=== PATIENT | female | born 1980 | race Caucasian/White ===

== ENCOUNTER 2018-10-28 14:18 | Emergency (ER) | payer SELFPAY ==
[~2018-10-28] VITALS: Ht 165.1 cm; Wt 72.7 kg
[2018-10-28] MEDS ORDERED: IBUPROFEN 600 MG TAB PO ONE (15:15)
[2018-10-28 16:19] VITALS: BP 119/72
[2018-10-28] MEDS ORDERED: NORCOTAB PO (16:30)
--- NOTE | 2018-10-29 07:38 | REP ---
LEFT THIRD DIGIT: Four views of the left third digit performed. There is a nondisplaced fracture of the distal phalanx. I see no other evidence of acute fracture or dislocation. Electronically Signed by Ankit Sethi MD 10/29/2018 10:23 A
--- NOTE | 2018-10-29 07:40 | REP ---
RIGHT LOWER LEG, AP AND LATERAL: AP and lateral views of the right lower leg performed. There is an old healed fracture of the proximal fibula. No acute fracture, dislocation or intrinsic bone disease is seen. Electronically Signed by Ankit Sethi MD 10/29/2018 10:24 A
--- NOTE | 2018-10-29 07:40 | REP ---
RIGHT KNEE SERIES: Five views of the right knee performed. There is an old healed fracture of the proximal fibula. I see no acute fracture or dislocation. Joint spaces are unremarkable. Electronically Signed by Ankit Sethi MD 10/29/2018 10:24 A
== END 2018-10-28 16:44 | disposition home or self-care (01) ==
LOC: M ED 14:18
DX: S62.665A Nondisplaced fracture of distal phalanx of left ring finger, initial encounter for closed fracture (principal); W17.89XA Other fall from one level to another, initial encounter; Y92.018 Other place in single-family (private) house as the place of occurrence of the external cause; Z88.1 Allergy status to other antibiotic agents; Z88.2 Allergy status to sulfonamides; Z88.8 Allergy status to other drugs, medicaments and biological substances

== ENCOUNTER → 2019-01-04 | Outpatient (CLI) | payer OTHER ==
[~2019-01-04] MED LIST: HYDR-3715 PO
--- NOTE | 2019-01-04 13:28 | REP ---
Clinical: Upper abdominal pain. Technique: Real time gastelum scale ultrasound examination using curved array transducer. Findings: Liver and visualized pancreas are normal in contour, size, and echogenicity without focal hepatic or pancreatic lesions identified. There appears to be a 9.7 x 2.3 x 4.9 cm ovoid complex cystic lesion in the lesser sac between pancreas and the stomach which may represent pseudocyst. The gallbladder demonstrates mobile gallstone without wall thickening or pericholecystic fluid. No biliary ductal dilatation is appreciated and the common bile duct measures 4.5 mm diameter. The right kidney is normal in reniform shape and echogenicity without hydronephrosis and measures 10.2 x 5.7 x 5.2 cm. No ascites. Impression: 1. Septated cystic structure in the lesser sac possibly pancreatic pseudocyst. Correlation with contrast enhanced CT of the abdomen may be warranted. 2. Cholelithiasis. Electronically Signed by Fabian Bryson MD 01/04/2019 01:19 P
== END ==
LOC: M RAD 09:05
PROVIDERS: ATTEND Family Medicine
DX: R10.10 Upper abdominal pain, unspecified (principal); K80.00 Calculus of gallbladder with acute cholecystitis without obstruction

== ENCOUNTER → 2019-01-12 | Outpatient (REF) | payer OTHER ==
[2019-01-12 13:39] LABS: BASO % 0.7 % (0.0-1.0); EOS # 0.1 10^3/uL (0.0-0.50); EOS % 2.6 % (0.0-3.0); HEMATOCRIT 41.1 % (36.0-47.0); HEMOGLOBIN 13.8 g/dl (12.0-15.5); LYMPH % 37.8 % (24.0-44.0); MEAN CORPUSCULAR HEMOGLOBIN 31.2 pg (27.0-33.0); MEAN CORPUSCULAR HGB CONC 33.6 g/dl (32.0-36.5); MONO # 0.4 10^3/uL (0.0-0.8); MONO % 6.7 % (0.0-5.0); NEUTROPHILS # 2.8 10^3/uL (1.8-7.7); NEUTROPHILS % 51.8 % (36.0-66.0); PLATELET COUNT, AUTOMATED 317 10^3/uL (150-450); RED BLOOD COUNT 4.42 10^6/uL (4.00-5.40); WHITE BLOOD COUNT 5.4 10^3/uL (4.0-10.0)
[2019-01-12 13:47] LABS: APPEARANCE, URINE CLEAR (CLEAR); BACTERIA, URINE AUTO NEGATIVE (NEGATIVE); BILIRUBIN, URINE AUTO NEGATIVE (NEGATIVE); BLOOD, URINE BLOOD 2+ (NEGATIVE); COLOR, URINE YELLOW (YELLOW); GLUCOSE, URINE (UA) AUTO NEGATIVE (NEGATIVE); KETONE, URINE AUTO NEGATIVE (NEGATIVE); LEUKOCYTE ESTERASE, URINE AUTO NEGATIVE (NEGATIVE); NITRITE, URINE AUTO NEGATIVE (NEGATIVE); PROTEIN, URINE AUTO NEGATIVE (NEGATIVE); RBC, URINE AUTO 0 /HPF (0-3); SQUAMOUS EPITHELIAL CELL UR AU 2 /HPF (0-6); UROBILINOGEN, URINE AUTO 0.2 mg/dL (0.0-2.0); WBC, URINE AUTO 0 /HPF (0-3)
[2019-01-12 13:50] LABS: INR 1.02; PROTHROMBIN TIME 13.5 SECONDS (12.1-14.4)
[2019-01-12 13:51] LABS: PARTIAL THROMBOPLASTIN TIME 30.1 SECONDS (25.4-37.6)
[2019-01-12 13:54] LABS: ALBUMIN 3.5 GM/DL (3.2-5.2); ALT/SGPT 15 U/L (12-78); BILIRUBIN,TOTAL 0.5 MG/DL (0.2-1.0); BLOOD UREA NITROGEN 15 MG/DL (7-18); CALCIUM LEVEL 8.3 MG/DL (8.5-10.1); CARBON DIOXIDE LEVEL 27 MEQ/L (21-32); CHLORIDE LEVEL 110 MEQ/L (98-107); CHOLESTEROL LEVEL 177 MG/DL (<200); FREE T4 0.91 NG/DL (0.76-1.46); GLOMERULAR FILTRATION RATE > 60.0 (>58); GLUCOSE, FASTING 85 MG/DL (70-100); HDL CHOLESTEROL 60 MG/DL (>40); LDL CHOLESTEROL 99 MG/DL (<100); NON-HDL-C 117 MG/DL; POTASSIUM SERUM 4.5 MEQ/L (3.5-5.1); SODIUM LEVEL 141 MEQ/L (136-145); TRIGLYCERIDES LEVEL 91 MG/DL (<150)
[2019-01-12 13:56] LABS: TOTAL 25(OH) VITAMIN D 21.4 NG/ML (30.0-100.0)
[2019-01-12 14:51] LABS: HEMOGLOBIN A1c 5.2 %
[2019-01-14 00:06] LABS: Lyme Disease IgG/IgM Antibodie <0.91 ISR (0.00-0.90); Lyme Disease IgM Ab Quantitati <0.80 index (0.00-0.79)
== END ==
LOC: M LAB REF 12:16
PROVIDERS: ATTEND Family Medicine
DX: R10.823 Right lower quadrant rebound abdominal tenderness (principal); K80.20 Calculus of gallbladder without cholecystitis without obstruction

== ENCOUNTER → 2019-01-23 | Outpatient (CLI) | payer MEDICAID, OTHER ==
[~2019-01-23] MED LIST changes: +GASTROGRAFIN SOLUTION 30ML (Q9963) As Ordered ONE; +ISOVUE-370 76% 100ML VIAL (Q9967) As Ordered ONE
--- NOTE | 2019-01-23 16:12 | REP ---
CT of the abdomen pelvis without IV contrast, with bowel contrast for right lower quadrant pain and rebound: There are no comparisons. The visualized lung vines are unremarkable. The unenhanced hepatic parenchyma is unremarkable. There is a 1.6 a centimeter gallbladder calculus with rim calcification. The gallbladder is otherwise unremarkable. There is no biliary duct dilatation. There is a focal fluid collection in the lesser sac anteriorly inferior to the pancreas. This could represent a pseudocyst, mesenteric cyst, enteric cyst or gastric cyst. It measures 6.5 by 4.1 cm. The unenhanced pancreas and spleen are otherwise unremarkable. The adrenals are unremarkable. There are no renal calculi. There is no hydronephrosis. The unenhanced kidneys are unremarkable. The abdominal aorta is unremarkable. There is no retroperitoneal adenopathy or mass. The bowel and mesentery are unremarkable. There is incomplete descent of the cecum. The cecum is located near the hepatic flexure. Pelvis: The uterus and adnexa are unremarkable. The bladder is unremarkable. There is no ascites. There is no adenopathy. Impression: There is a fluid collection in the lesser sac anterior inferior to the pancreas as described. This could represent a mesenteric, enteric or gastric cyst. Pancreatic pseudocyst is also possible. There is no ascites or adenopathy. No mass. No bowel distension or obstruction. Electronically Signed by Ankit Trinidad MD 01/23/2019 04:04 P
== END ==
LOC: M RAD 13:12
PROVIDERS: ATTEND Nurse Practitioner Adult Health
DX: R10.10 Upper abdominal pain, unspecified (principal); R10.823 Right lower quadrant rebound abdominal tenderness
CPT/HCPCS: 74176; Q9963

== ENCOUNTER 2019-03-19 12:23 | Emergency (ER) | payer OTHER ==
[~2019-03-19] VITALS: Ht 165.1 cm; Wt 77.6 kg
[~2019-03-19 12:23] MED LIST changes: -GASTROGRAFIN SOLUTION 30ML (Q9963) As Ordered ONE; -ISOVUE-370 76% 100ML VIAL (Q9967) As Ordered ONE
[2019-03-19] MEDS ORDERED: IBUPROFEN 800 MG TAB PO ONE (14:15)
[2019-03-19 14:27] LABS: HEMATOCRIT 42.8 % (36.0-47.0); HEMOGLOBIN 14.3 g/dl (12.0-15.5); MEAN CORPUSCULAR HEMOGLOBIN 30.8 pg (27.0-33.0); MEAN CORPUSCULAR HGB CONC 33.4 g/dl (32.0-36.5); PLATELET COUNT, AUTOMATED 283 10^3/uL (150-450); RED BLOOD COUNT 4.65 10^6/uL (4.00-5.40); WHITE BLOOD COUNT 8.4 10^3/uL (4.0-10.0)
[2019-03-19 15:13] VITALS: BP 133/77
--- NOTE | 2019-03-19 15:39 | REP ---
REASON: Thumb pain. FINDINGS: No acute fracture or destructive osseous lesion. Electronically Signed by Aric Miller DO 03/19/2019 04:49 P
[2019-04-13] MEDS ORDERED: DULO1CAP5 PO (07:54)
[2019-04-13] MEDS ORDERED: MIRT1TAB PO (07:54)
[2019-04-13] MEDS ORDERED: ABIL1TAB13 PO (07:54)
== END 2019-03-19 15:15 | disposition home or self-care (01) ==
LOC: M ED 12:23
DX: M79.89 Other specified soft tissue disorders (principal); Z79.899 Other long term (current) drug therapy; Z88.2 Allergy status to sulfonamides; Z88.8 Allergy status to other drugs, medicaments and biological substances

== ENCOUNTER → 2019-03-20 | Outpatient (REF) | payer OTHER ==
[2019-03-20 18:07] LABS: APPEARANCE, URINE CLEAR (CLEAR); BACTERIA, URINE AUTO NEGATIVE (NEGATIVE); BILIRUBIN, URINE AUTO NEGATIVE (NEGATIVE); BLOOD, URINE BLOOD NEGATIVE (NEGATIVE); COLOR, URINE STRAW (YELLOW); GLUCOSE, URINE (UA) AUTO NEGATIVE (NEGATIVE); KETONE, URINE AUTO NEGATIVE (NEGATIVE); LEUKOCYTE ESTERASE, URINE AUTO NEGATIVE (NEGATIVE); NITRITE, URINE AUTO NEGATIVE (NEGATIVE); PROTEIN, URINE AUTO NEGATIVE (NEGATIVE); RBC, URINE AUTO 0 /HPF (0-3); SPECIFIC GRAVITY URINE AUTO 1.006 (1.002-1.035); SQUAMOUS EPITHELIAL CELL UR AU 0 /HPF (0-6); UROBILINOGEN, URINE AUTO 0.2 mg/dL (0.0-2.0); WBC, URINE AUTO 1 /HPF (0-3)
== END ==
LOC: M LAB REF 17:02
PROVIDERS: ATTEND Nurse Practitioner Women's Health
DX: Z32.02 Encounter for pregnancy test, result negative (principal)

== ENCOUNTER 2019-03-29 17:25 | Emergency (ER) | payer OTHER ==
[~2019-03-29] VITALS: Ht 165.1 cm; Wt 78.4 kg
[2019-03-29 18:29] LABS: BASO # 0.1 10^3/uL (0.0-0.2); BASO % 0.9 % (0.0-1.0); EOS # 0.2 10^3/uL (0.0-0.50); EOS % 2.2 % (0.0-3.0); HEMATOCRIT 37.6 % (36.0-47.0); HEMOGLOBIN 12.8 g/dl (12.0-15.5); LYMPH # 2.5 10^3/uL (1.5-4.5); LYMPH % 36.5 % (24.0-44.0); MEAN CORPUSCULAR HEMOGLOBIN 31.5 pg (27.0-33.0); MEAN CORPUSCULAR VOLUME 92.6 fl (80.0-96.0); MONO # 0.5 10^3/uL (0.0-0.8); MONO % 7.3 % (0.0-5.0); NEUTROPHILS # 3.6 10^3/uL (1.8-7.7); NEUTROPHILS % 52.8 % (36.0-66.0); PLATELET COUNT, AUTOMATED 312 10^3/uL (150-450); RED BLOOD COUNT 4.06 10^6/uL (4.00-5.40); WHITE BLOOD COUNT 6.8 10^3/uL (4.0-10.0)
[2019-03-29 19:08] LABS: ALBUMIN 3.6 GM/DL (3.2-5.2); ALT/SGPT 16 U/L (12-78); BILIRUBIN,DIRECT 0.1 MG/DL (0.0-0.2); BILIRUBIN,TOTAL 0.4 MG/DL (0.2-1.0); BLOOD UREA NITROGEN 17 MG/DL (7-18); CALCIUM LEVEL 9.2 MG/DL (8.5-10.1); CARBON DIOXIDE LEVEL 27 MEQ/L (21-32); CHLORIDE LEVEL 110 MEQ/L (98-107); CREATININE FOR GFR 0.91 MG/DL (0.55-1.30); GLOMERULAR FILTRATION RATE > 60.0 (>58); GLUCOSE, FASTING 89 MG/DL (70-100); LIPASE 167 U/L (73-393); POTASSIUM SERUM 4.2 MEQ/L (3.5-5.1); SODIUM LEVEL 144 MEQ/L (136-145); TOTAL PROTEIN 6.6 GM/DL (6.4-8.2)
[2019-03-29] MEDS ORDERED: ISOVUE-370 76% 100ML VIAL (Q9967) As Ordered ONE (20:41)
[2019-03-29] MEDS ORDERED: NS 1,000 ML IV ONE (20:45)
[2019-03-29] MEDS ORDERED: MORPHINE 4 MG/ML 1ML VIAL/SYRINGE (J2270) IV ONE (20:45)
[2019-03-29] MEDS ORDERED: ONDANSETRON 4MG/2ML VIAL (J2405) IV ONE (20:45)
--- NOTE | 2019-03-29 21:58 | REPVR ---
EXAM: CT Abdomen and Pelvis With Contrast EXAM DATE/TIME: 03/29/2019 8:45 PM CLINICAL HISTORY: 38 years old, female; Abdominal pain; Generalized; Additional info: Diffuse, severe abd pain, L mid back pain TECHNIQUE: Imaging protocol: Computed tomography images of the abdomen and pelvis with intravenous contrast. Radiation optimization: All CT scans at this facility use at least one of these dose optimization techniques: automated exposure control; mA and/or kV adjustment per patient size (includes targeted exams where dose is matched to clinical indication); or iterative reconstruction. Contrast material: ISOVUE 370; Contrast volume: 100 ml; Contrast route: IV; COMPARISON: CT ABD/PEL W/PO CONTRAST ONLY 01/23/2019 3:07 PM FINDINGS: Liver: Unremarkable. No mass. Gallbladder and bile ducts: There is a rim calcified stone measuring 16 mm within the gallbladder. Generalized gallbladder wall thickening is likely secondary to gallbladder collapse. Correlate clinically. Consider right upper quadrant ultrasound as clinically indicated. The common bile duct has a normal caliber. Pancreas: No pancreatic mass or duct dilatation. Spleen: Unremarkable. No splenomegaly. Adrenals: Normal. No mass. Kidneys and ureters: Unremarkable. No stones. No hydronephrosis. Stomach and bowel: Unremarkable. No obstruction. No mucosal thickening. Appendix: No evidence of appendicitis. Intraperitoneal space: A well-defined cystic mass measuring 6.3 cm x 2.5 cm x 5.1 cm within the lesser sac and anterior and inferior to the pancreas is unchanged compared to the prior examination. Vasculature: Unremarkable. No abdominal aortic aneurysm. Lymph nodes: Slightly prominent nonspecific mesenteric lymph nodes, unchanged. Bladder: Unremarkable as visualized. Reproductive: Unremarkable as visualized. Bones/joints: No acute fracture. Soft tissues: Unremarkable. IMPRESSION: 1. Cholelithiasis with gallbladder wall thickening, likely secondary to gallbladder contraction. Correlate clinically. Consider right upper quadrant ultrasound as clinically indicated. 2. Indeterminate well-defined cystic mass within the lesser sac, anterior and inferior to the pancreas, unchanged compared to the prior examination. Electronically signed by: Charlie Swartz On 03/29/2019 21:58:02 PM
[2019-03-29] MEDS ORDERED: METHOCARBAMOL 1,000 MG/10 ML VIAL (J2800) IV ONE (22:30)
[2019-03-29] MEDS ORDERED: KETOROLAC 30 MG/ML VIAL (J1885) IV ONE (22:30)
[2019-03-29] MEDS ORDERED: LIDOCAINE 5% (LIDODERM) PATCH TD ONE (22:30)
[2019-03-29] MEDS ORDERED: METH1TAB40 PO (23:27)
[2019-03-29] MEDS ORDERED: LIDO1PAD TOP (23:27)
[2019-03-29 23:38] VITALS: BP 115/66
--- NOTE | 2019-03-30 07:25 | ED PDOC ---
Post-Departure Follow-Up mckenna muhammad faxed formal report of ct abd/p for fu Adam Love MD Mar 30, 2019 07:25
[2019-03-30] MEDS ORDERED: **NOTE PATIENT COMMENT** MISC XX SCH (10:30)
[2019-04-13] MEDS ORDERED: DULO1CAP5 PO (07:54)
[2019-04-13] MEDS ORDERED: ABIL1TAB13 PO (07:54)
[2019-04-13] MEDS ORDERED: MIRT1TAB PO (07:54)
== END 2019-03-29 23:46 | disposition home or self-care (01) ==
LOC: M ED 17:25
DX: M54.6 Pain in thoracic spine (principal); R10.12 Left upper quadrant pain; Z79.899 Other long term (current) drug therapy; Z88.1 Allergy status to other antibiotic agents; Z88.2 Allergy status to sulfonamides; Z88.8 Allergy status to other drugs, medicaments and biological substances
CPT/HCPCS: 74177; 80048; 80076; 81001; 83690; 84702; 85025; 96361; 96374; 96375; 99284; J1885; J2270; J2405; J2800; Q9967

== ENCOUNTER 2019-04-19 06:55 | Day surgery (SDC) | payer OTHER ==
[~2019-04-19] VITALS: Ht 165.1 cm; Wt 77.1 kg
[~2019-04-19 06:55] MED LIST changes: +ABIL1TAB13 PO; +DULO1CAP5 PO; +LIDO1PAD TOP; +METH1TAB40 PO; +MIRT1TAB PO
[2019-04-19] MEDS ORDERED: NS 1,000 ML IV ONE (07:00)
[2019-04-19] MEDS ORDERED: propofoL 200 MG/20 ML VIAL As Ordered ONE ×2 (07:59→08:49)
[2019-04-19] MEDS ORDERED: LIDOCAINE 2% INJ 100 MG/5 ML SDV (FOR ANES.) As Ordered ONE (08:00)
[2019-04-19 09:30] VITALS: BP 125/63
--- NOTE | 2019-04-19 09:38 | ROOR ---
Patient Name: Dyan Dumont Procedure Date: 04/19/2019 8:22 AM Date of : 1980 Age: 38 Room: [facility] Gender: Female Note Status: Finalized Procedure: Colonoscopy Indications: Fecal incontinence Providers: Demetri Cummins MD Referring MD: Mikki WELLS NP Requesting Provider: Medicines: Monitored Anesthesia Care Complications: No immediate complications. Procedure: Pre-Anesthesia Assessment: - Prior to the procedure, a History and Physical was performed, and patient medications and allergies were reviewed. The patient is competent. The risks and benefits of the procedure and the sedation options and risks were discussed with the patient. All questions were answered and informed consent was obtained. Patient identification and proposed procedure were verified by the physician, the nurse and the anesthesiologist in the procedure room. Mental Status Examination: alert and oriented. Airway Examination: normal oropharyngeal airway and neck mobility. Respiratory Examination: clear to auscultation. CV Examination: normal. Prophylactic Antibiotics: The patient does not require prophylactic antibiotics. Prior Anticoagulants: The patient has taken no previous anticoagulant or antiplatelet agents. ASA Grade Assessment: II - A patient with mild systemic disease. After reviewing the risks and benefits, the patient was deemed in satisfactory condition to undergo the procedure. The anesthesia plan was to use monitored anesthesia care (MAC). Immediately prior to administration of medications, the patient was re-assessed for adequacy to receive sedatives. The heart rate, respiratory rate, oxygen saturations, blood pressure, adequacy of pulmonary ventilation, and response to care were monitored throughout the procedure. The physical status of the patient was re-assessed after the procedure. The Colonoscope was introduced through the anus and advanced to the terminal ileum, with identification of the appendiceal orifice and IC valve. The colonoscopy was performed without difficulty. The patient tolerated the procedure well. The quality of the bowel preparation was good. The terminal ileum, ileocecal valve, appendiceal orifice, and rectum were photographed. Scope insertion time was 4 minutes. Scope withdrawal time was 8 minutes. The total duration of the procedure was 12 minutes. Findings: Detailed rectal exam done. Normal perianal sensation for light touch and pin-prick. Digital rectal exam - no mass palpable. Noted slightly decreased anal sphincter tone and when asked to squeeze the spincter, there is paradoxial relaxation of sphincter. The terminal ileum appeared normal. A 5 mm polyp was found in the sigmoid colon. The polyp was sessile. The polyp was removed with a jumbo cold forceps. Resection and retrieval were complete. Non-bleeding external and internal hemorrhoids were found during retroflexion. The hemorrhoids were medium-sized. Impression: - The examined portion of the ileum was normal. - One 5 mm polyp in the sigmoid colon, removed with a jumbo cold forceps. Resected and retrieved. - Non-bleeding external and internal hemorrhoids. Recommendation: - Patient has a contact number available for emergencies. The signs and symptoms of potential delayed complications were discussed with the patient. Return to normal activities tomorrow. Written discharge instructions were provided to the patient. - High fiber diet. - Continue present medications. - Perform Kegel exercises daily for atleast 15- 30 minutes. - Await pathology results. - Repeat colonoscopy in 5-10 years for surveillance based on pathology results. - Telephone GI clinic for pathology results in 1 week. - Return to primary care physician. Demetri Cummins MD Demetri Cummins MD 04/19/2019 9:38:12 AM Electronically signed by Demetri Cummins MD Number of Addenda: 0 Note Initiated On: 04/19/2019 8:22 AM Estimated Blood Loss: Estimated blood loss was minimal.
[2019-05-31] MEDS ORDERED: DULO1CAP4 PO (09:54)
[2019-05-31] MEDS ORDERED: DEPA250T32 PO (09:54)
[2019-05-31] MEDS ORDERED: MIRT1TAB16 PO (09:54)
== END 2019-04-19 09:36 | disposition home or self-care (01) ==
LOC: M OPP 06:55
PROVIDERS: ATTEND Internal Medicine Gastroenterology
DX: K64.8 Other hemorrhoids (principal); D12.5 Benign neoplasm of sigmoid colon; R15.9 Full incontinence of feces; Z88.2 Allergy status to sulfonamides; Z88.8 Allergy status to other drugs, medicaments and biological substances; Z87.891 Personal history of nicotine dependence; Z80.0 Family history of malignant neoplasm of digestive organs

== ENCOUNTER 2019-04-26 06:57 | Day surgery (SDC) | payer OTHER ==
[~2019-04-26] VITALS: Ht 165.1 cm; Wt 79.8 kg
[2019-04-26] MEDS ORDERED: LR 1,000 ML IV ONE (07:00)
[2019-04-26 07:49] LABS: URINE PREG TEST NEGATIVE (NEGATIVE)
[2019-04-26] MEDS ORDERED: LIDOCAINE 2% INJ 100 MG/5 ML SDV (FOR ANES.) As Ordered ONE (08:23)
[2019-04-26] MEDS ORDERED: ROCURONIUM BROMIDE 50 MG/5 ML VIAL As Ordered ONE ×2 (08:23→09:24)
[2019-04-26] MEDS ORDERED: propofoL 200 MG/20 ML VIAL As Ordered ONE (08:23)
[2019-04-26] MEDS ORDERED: SUGAMMADEX SODIUM 500 MG/5 ML VIAL (BRIDION) As Ordered ONE (08:23)
[2019-04-26] MEDS ORDERED: dexameTHASONE 4 MG/ML 1ML VIAL (J1100) As Ordered ONE (08:24)
[2019-04-26] MEDS ORDERED: KETAMINE HCL 200 MG/20 ML VIAL As Ordered ONE (08:24)
[2019-04-26] MEDS ORDERED: KETOROLAC 60 MG/2 ML VIAL (J1885) As Ordered ONE (08:24)
[2019-04-26] MEDS ORDERED: ONDANSETRON 4MG/2ML VIAL (J2405) As Ordered ONE (08:24)
[2019-04-26] MEDS ORDERED: fentaNYL 100 MCG/2 ML INJECTION (J3010) As Ordered ONE (08:25)
[2019-04-26] MEDS ORDERED: MIDAZOLAM INJ 2 MG/2 ML VIAL (J2250) As Ordered ONE (08:25)
[2019-04-26] MEDS ORDERED: BUPIVACAINE HCL 0.25% 30 ML VIAL As Ordered ONE (09:43)
[2019-04-26] MEDS ORDERED: ACETAMINOPHEN 1000MG 100ML IV BTL (OFIRMEV) (J0131 PER 10MG) As Ordered ONE (10:38)
[2019-04-26] MEDS ORDERED: fentaNYL 100 MCG/2 ML INJECTION (J3010) IV PRN (12:00)
[2019-04-26] MEDS ORDERED: ACETAMINOPHEN TAB 650MG DOSE (2X325MG) PO PRN (12:00)
[2019-04-26] MEDS ORDERED: NORCO, ANEXSIA 5/325MG TABLET (HYDROcodone/ACETAMINOPHEN) PO PRN (12:00)
[2019-04-26] MEDS ORDERED: oxyCODONE 5MG TAB PO PRN (12:00)
[2019-04-26] MEDS ORDERED: ONDANSETRON 4MG/2ML VIAL (J2405) IV PRN (12:00)
[2019-04-26] MEDS ORDERED: IBUPROFEN 600 MG TAB PO PRN (12:00)
[2019-04-26] MEDS ORDERED: LR 1,000 ML IV SCH (12:00)
[2019-04-26 12:55] VITALS: BP 119/67
--- NOTE | 2019-04-27 10:28 | RO ---
DATE OF PROCEDURE: 04/26/2019 PREOPERATIVE DIAGNOSIS: Cholelithiasis. POSTOPERATIVE DIAGNOSES: 1. Cholelithiasis. 2. Multiple abdominal adhesions. PROCEDURE PERFORMED: Robotic-assisted laparoscopic cholecystectomy with lysis of adhesions. SURGEON: Dr. Cash Hernandez [employer] SEWER: PETER Hernandez (Judith's assistance was necessary for placement of trocars, manipulation of the robot, changing instruments and closure of the incisions). ANESTHESIA: General. INDICATIONS FOR PROCEDURE: Patient is 39-year-old woman with a history of some upper abdominal discomfort and cholelithiasis. She is now for a robotic-assisted laparoscopic cholecystectomy. OPERATIVE PROCEDURE: The patient was brought to the operating room and placed on the table in a supine position. The patient was placed under general endotracheal anesthesia. The patient's abdomen was prepped and draped in a sterile fashion. 0.25% Marcaine was infiltrated at each of the trocar sites in turn. Short incision was made in the left upper quadrant. Veress needle was inserted and after positive hanging drop test the abdomen was inflated with carbon dioxide gas. An 8 mm Visiport was placed over the camera and advanced through the abdominal wall without difficulty. Initial inspection showed multiple filmy adhesions of the liver to the diaphragm involving the right lobe. The gallbladder appeared slightly thick-walled, but not acutely inflamed. There was a band of omentum which was adherent and a single band-like adhesion to the right lower quadrant anterior abdominal wall. There was some scarring at the site of a prior umbilical hernia repair with a suggestion that there may have been a very small residual opening left. Three additional trocars were spaced across the abdomen from left upper quadrant to right lower quadrant. The robot was then brought into position and docked the camera port. Targeting took place and the remaining robotic arms were docked. The patient has been placed into a slight reverse Trendelenburg position and rolled slightly to the left prior to docking the robot. I then moved to the control console and proceeded with the robotic portion of the procedure. Initially, I took down some of the adhesions of the dome of the liver to the anterior abdominal wall as I thought these might interfere with normal retraction of the liver. These were quite filmy in nature and some were divided using the hook cautery. Later in the procedure, additional adhesions were cut using the cauterizing scissors. There was no bleeding resulting. Gallbladder was grasped and elevated. The gallbladder neck was exposed. Dissection of the gallbladder neck was carried out using the hook cautery. The cystic duct was clearly identified. There were two small arteries identified coming up the medial wall of the gallbladder. Initially, the cystic duct was doubly clipped and divided. This made it easier to expose the arteries and these were clipped with a pair of hemoclips and divided. The gallbladder was then dissected free from the gallbladder bed using the hook cautery. The gallbladder was not perforated. The gallbladder was placed in an Endopouch. The robotic instruments were removed and the robot undocked. The patient was returned to a flat position and the abdomen was deflated and the trocars were removed. The gallbladder was recovered through the incision just above and to the left of the umbilicus. This necessitated extending the fascial incision slightly because of multiple gallstones. Once the gallbladder had been delivered, the fascia was closed with #2-0 Vicryl. The skin incisions were all closed with buried #5-0 Vicryl and Steri-Strips. Additional local anesthesia was infiltrated with 0.25% Marcaine. Light dressings were applied. The patient tolerated the procedure well. She was awakened in the operating room, extubated and moved to the recovery room in stable condition. I would note that the band-like adhesion of the omentum to anterior abdominal wall had also been lysed late in the procedure.
[2019-05-31] MEDS ORDERED: DULO1CAP4 PO (09:54)
[2019-05-31] MEDS ORDERED: DEPA250T32 PO (09:54)
[2019-05-31] MEDS ORDERED: MIRT1TAB16 PO (09:54)
== END 2019-04-26 13:21 | disposition home or self-care (01) ==
LOC: M SDC 06:57
PROVIDERS: ATTEND Surgery
DX: K80.10 Calculus of gallbladder with chronic cholecystitis without obstruction (principal); N73.6 Female pelvic peritoneal adhesions (postinfective); F41.9 Anxiety disorder, unspecified; F32.9 Major depressive disorder, single episode, unspecified; Z79.899 Other long term (current) drug therapy; Z88.0 Allergy status to penicillin; Z88.8 Allergy status to other drugs, medicaments and biological substances
CPT/HCPCS: 47562; 84703; 88304; J0131; J1100; J1885; J2250; J2405; J3010

== ENCOUNTER → 2019-06-04 | Outpatient (CLI) | payer OTHER ==
[~2019-06-04] MED LIST changes: +DEPA250T32 PO; +DULO1CAP4 PO; +MIRT1TAB16 PO
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
== END ==
LOC: M PAIN 09:30
PROVIDERS: ATTEND Anesthesiology
DX: M79.2 Neuralgia and neuritis, unspecified (principal); R07.89 Other chest pain; Z86.59 Personal history of other mental and behavioral disorders; Z88.2 Allergy status to sulfonamides; Z88.8 Allergy status to other drugs, medicaments and biological substances; Z79.899 Other long term (current) drug therapy

== ENCOUNTER → 2019-06-04 | Outpatient (CLI) | payer OTHER ==
--- NOTE | 2019-06-04 12:26 | REP ---
Clinical: left-sided chest wall pain . Comparison: None . Technique: PA and lateral. Findings: The mediastinum and cardiac silhouette are normal. The lung vines are clear and without acute consolidation, effusion, or pneumothorax. The skeletal structures are intact and normal. Impression: 1. No acute cardiopulmonary process. Electronically Signed by Fabian Bryson MD 06/04/2019 12:18 P
== END ==
LOC: M RAD 12:03
PROVIDERS: ATTEND Anesthesiology
DX: M79.2 Neuralgia and neuritis, unspecified (principal); R07.89 Other chest pain

== ENCOUNTER → 2019-06-07 | Outpatient (CLI) | payer OTHER ==
[2019-06-07 11:40] LABS: ALBUMIN 3.7 GM/DL (3.2-5.2); ALT/SGPT 46 U/L (12-78); BILIRUBIN,DIRECT 0.1 MG/DL (0.0-0.2); BILIRUBIN,TOTAL 0.6 MG/DL (0.2-1.0); BLOOD UREA NITROGEN 12 MG/DL (7-18); CARBON DIOXIDE LEVEL 23 MEQ/L (21-32); CHLORIDE LEVEL 110 MEQ/L (98-107); CHOLESTEROL LEVEL 206 MG/DL (<200); CHOLESTEROL RISK RATIO 3.322 (<5); CREATININE FOR GFR 0.85 MG/DL (0.55-1.30); GLOMERULAR FILTRATION RATE > 60.0 (>58); GLUCOSE, FASTING 98 MG/DL (70-100); HDL CHOLESTEROL 62 MG/DL (>40); LDL CHOLESTEROL 121 MG/DL (<100); NON-HDL-C 144 MG/DL; POTASSIUM SERUM 4.4 MEQ/L (3.5-5.1); SODIUM LEVEL 140 MEQ/L (136-145); TRIGLYCERIDES LEVEL 115 MG/DL (<150); VALPROIC ACID (DEPAKOTE) 16.9 UG/ML (50.0-100.0)
== END ==
LOC: M LAB 09:45
PROVIDERS: ATTEND Psychiatry & Neurology Psychiatry
DX: F33.1 Major depressive disorder, recurrent, moderate (principal); F41.1 Generalized anxiety disorder

== ENCOUNTER → 2019-06-07 | Outpatient (CLI) | payer OTHER ==
[2019-06-07 10:59] LABS: BASO # 0.1 10^3/uL (0.0-0.2); BASO % 0.8 % (0.0-1.0); EOS # 0.2 10^3/uL (0.0-0.5); EOS % 2.6 % (0.0-3.0); HEMATOCRIT 39.2 % (36.0-47.0); LYMPH # 2.2 10^3/uL (1.5-5.0); LYMPH % 35.7 % (24.0-44.0); MEAN CORPUSCULAR HEMOGLOBIN 30.7 pg (27.0-33.0); MEAN CORPUSCULAR HGB CONC 33.2 g/dl (32.0-36.5); MEAN CORPUSCULAR VOLUME 92.7 fl (80.0-96.0); MONO # 0.5 10^3/uL (0.0-0.8); MONO % 7.8 % (0.0-5.0); NEUTROPHILS # 3.3 10^3/uL (1.5-8.5); NEUTROPHILS % 52.8 % (36.0-66.0); PLATELET COUNT, AUTOMATED 311 10^3/uL (150-450); RED BLOOD COUNT 4.23 10^6/uL (4.00-5.40); WHITE BLOOD COUNT 6.2 10^3/uL (4.0-10.0)
[2019-06-07 11:33] LABS: FREE T4 0.85 NG/DL (0.76-1.46); PROLACTIN 17.5 NG/ML; THYROID STIMULATING HORMONE 1.33 uIU/ML (0.358-3.740)
== END ==
LOC: M LAB 09:42
PROVIDERS: ATTEND Nurse Practitioner Women's Health
DX: Z32.02 Encounter for pregnancy test, result negative (principal)

== ENCOUNTER 2019-06-14 09:11 | Day surgery (SDC) | payer OTHER ==
[~2019-06-14] VITALS: Ht 165.1 cm; Wt 83.9 kg
[~2019-06-14 09:11] MED LIST changes: +LR 1,000 ML IV ONE; +ceFAZolin SOD 2 GM in IV 1 EA IV ONE
[2019-06-14 10:01] LABS: HEMATOCRIT 41.4 % (36.0-47.0); HEMOGLOBIN 13.9 g/dl (12.0-15.5); MEAN CORPUSCULAR HEMOGLOBIN 30.5 pg (27.0-33.0); MEAN CORPUSCULAR HGB CONC 33.6 g/dl (32.0-36.5); PLATELET COUNT, AUTOMATED 329 10^3/uL (150-450); RED BLOOD COUNT 4.55 10^6/uL (4.00-5.40); WHITE BLOOD COUNT 5.1 10^3/uL (4.0-10.0)
[2019-06-14 10:14] LABS: BLOOD UREA NITROGEN 16 MG/DL (7-18); CALCIUM LEVEL 8.9 MG/DL (8.5-10.1); CARBON DIOXIDE LEVEL 26 MEQ/L (21-32); CHLORIDE LEVEL 111 MEQ/L (98-107); CREATININE FOR GFR 0.79 MG/DL (0.55-1.30); GLOMERULAR FILTRATION RATE > 60.0 (>58); GLUCOSE, FASTING 86 MG/DL (70-100); POTASSIUM SERUM 4.2 MEQ/L (3.5-5.1); SODIUM LEVEL 141 MEQ/L (136-145)
[2019-06-14] MEDS ORDERED: fentaNYL 250 MCG/5 ML INJECTION (J3010) As Ordered ONE (10:22)
[2019-06-14] MEDS ORDERED: MIDAZOLAM INJ 2 MG/2 ML VIAL (J2250) As Ordered ONE (10:22)
[2019-06-14] MEDS ORDERED: PROPOFOL 200 MG/20 ML VIAL As Ordered ONE (10:22)
[2019-06-14] MEDS ORDERED: ROCURONIUM BROMIDE 50 MG/5 ML VIAL As Ordered ONE ×2 (10:22→11:58)
[2019-06-14] MEDS ORDERED: LIDOCAINE 2% INJ 100 MG/5 ML SDV (FOR ANES.) As Ordered ONE (10:22)
[2019-06-14] MEDS ORDERED: LACRILUBE (AKWA TEARS) OPHTH OINT 3.5 GM As Ordered ONE (10:59)
[2019-06-14] MEDS ORDERED: ONDANSETRON 4MG/2ML VIAL (J2405) As Ordered ONE (11:33)
[2019-06-14] MEDS ORDERED: dexameTHASONE 4 MG/ML 1ML VIAL (J1100) As Ordered ONE (11:34)
[2019-06-14] MEDS ORDERED: METOCLOPRAMIDE INJ 10MG/2ML VIAL (J2765) As Ordered ONE (11:34)
[2019-06-14] MEDS ORDERED: KETOROLAC 60 MG/2 ML VIAL (J1885) As Ordered ONE (11:34)
[2019-06-14] MEDS ORDERED: GLYCOPYRROLATE INJ 0.2 MG/ML 2 ML VIAL As Ordered ONE (12:03)
[2019-06-14] MEDS ORDERED: fentaNYL 100 MCG/2 ML INJECTION (J3010) As Ordered ONE (12:08)
[2019-06-14] MEDS ORDERED: SUGAMMADEX SODIUM 500 MG/5 ML VIAL (BRIDION) As Ordered ONE (12:17)
[2019-06-14] MEDS ORDERED: HYDROmorphone HCL 2 MG/ML 1ML VIAL (J1170) As Ordered ONE (12:20)
[2019-06-14] MEDS ORDERED: ACETAMINOPHEN 1000MG 100ML IV BTL (OFIRMEV) (J0131 PER 10MG) As Ordered ONE (12:28)
[2019-06-14] MEDS ORDERED: fentaNYL 100 MCG/2 ML INJECTION (J3010) IV PRN (13:15)
[2019-06-14] MEDS ORDERED: MEPERIDINE INJ 25 MG/ML VIAL (J2175) IV PRN (13:15)
[2019-06-14] MEDS ORDERED: METOCLOPRAMIDE INJ 10MG/2ML VIAL (J2765) IV PRN (13:15)
[2019-06-14] MEDS ORDERED: oxyCODONE 5MG TAB PO PRN (13:15)
[2019-06-14] MEDS ORDERED: LR 1,000 ML IV SCH (13:15)
[2019-06-14] MEDS ORDERED: ONDANSETRON 4MG/2ML VIAL (J2405) IV PRN (13:15)
[2019-06-14] MEDS ORDERED: diphenhydrAMINE INJ 50MG/ML VIAL (J1200) IV PRN (13:30)
[2019-06-14] MEDS ORDERED: NALBUPHINE HCL 10 MG/ML AMP (J2300) IV PRN (13:30)
[2019-06-14] MEDS ORDERED: EPIDURAL/PCA KEYS XX PRN (13:30)
[2019-06-14] MEDS ORDERED: NALOXONE INJ 0.4 MG/1 ML VIAL (J2310) IV PRN (13:30)
[2019-06-14] MEDS: LR 1,000 ML IV SCH ×2 (13:30→21:01)
[2019-06-14] MEDS ORDERED: IBUPROFEN 600 MG TAB PO PRN (13:30)
[2019-06-14] MEDS ORDERED: MORPHINE 1MG/ML IN 0.9% NACL 100ML IV BAG IV PRN (13:30)
--- NOTE | 2019-06-14 14:44 | RO ---
DATE OF PROCEDURE: 06/14/2019 PREPROCEDURE DIAGNOSIS: Pain and bleeding. POSTPROCEDURE DIAGNOSIS: Pain and bleeding. There is some suspicion of endometriosis of the uterus. PROCEDURE: Robotic assisted hysterectomy with bilateral salpingectomy. The patient retained her ovaries at her request. SURGEON: Dr. Radha Aj. ROADMASTER: PETER Hernandez. ANESTHESIA: General endotracheal anesthesia. DESCRIPTION OF PROCEDURE: Kera was brought to the operating room where sufficient general endotracheal anesthesia was induced. She was prepped, draped and positioned in the usual fashion. The uterine manipulator was placed as well as the Ventura with the ability to backfill. We then turned our attention to the abdominal part of the case. A transverse semilunar incision was made over a previous incision scar at the umbilicus. Sharp and blunt dissection were continued to the subcutaneous tissue to the level of the rectus fascia, which was elevated with Armani clamps and secured with 0 Vicryl retention suture. The peritoneum was entered under direct visualization, although the patient had a herniorrhaphy and a recent cholecystectomy, the incision for the cholecystectomy was actually slightly lateral to the umbilicus and at the site of entry into the abdomen, we did not encounter any untoward bowel adhesions but we were careful to work our way through these tissues with care. The Sue cannula was placed CO2 insufflation was undertaken. After adequate CO2 insufflation, the peritoneal cavity was visualized. There were normal shiny peritoneal surfaces but with some sort of bruising-looking and powder burn stain kind of changes over the uterus itself consistent with endometriosis and there were, what I assumed, postoperative adhesions, some in a normal location over the bladder flap, some in the descending colon to the left lateral side wall, and of course some scarring of the tubes from her previous tubal ligation. There were a couple of cysts of Morgagni, which of course, were benign and came out with the tubes anyway. The ovaries themselves were reassuring. There were not a lot of endometrial implants in the ovarian fossa or anything like that. With uterine manipulation we were able to free the uterus from these adhesions fairly well. I did take those bladder adhesions down with cold scissors, even through, when we backfilled the bladder it appeared they were reasonably away from the bladder. We placed two left-sided and one right-sided port. Had the patient in Trendelenburg and docked the robot in the normal fashion. Working from the robot, we carefully dissected the tubes from their mesentery, starting first on the left and then working to the right. We then cauterized and transected the utero-ovarian suspensory ligaments, again starting on the left working to the right. Having freed the ovaries from the uterus, we then worked through the round ligament. Then using the cold scissors, brought the broad ligament dissection down. The uterus was a little distorted and twisted in a counter clockwise way as you looked towards the feet but we were able, with the uterine manipulator, to just correct that so that we could reorient the landmarks and work well away from the ureters and such. Again, we used cold scissors to bring the bladder flap down initially and backfilled the bladder as needed to make sure that we were well away. Then after we had the bladder flap developed, the broad ligament incision was taken care, the round ligaments, of course transected and the tubes freed from the ovaries which were also freed from the uterus. We went ahead and cauterized the uterine vasculature. Patient had some well-developed uterine vasculature which was carefully dissected and then we made the initial colpotomy posteriorly and worked in a U shaped dissection so that we could leave the insertions at the uterosacral ligaments int act to help offer future support for this patient. Then we continues our dissection laterally through where we had already cauterized the uterine vasculature and the completed the colpotomy anteriorly where we already brought the bladder flap down. Having the uterus freed, the uterus and tubes were delivered into the vagina where we used them to hold the pneumoperitoneum. We then used V-Loc suture. There were some pumping vessels ascending vaginal vessels that we did control with this closure. We went ahead and took two separate angle closures with the V-Loc and then worked towards the middle and had good hemostasis and approximation with that closure. We then irrigated, let a little pressure off and observed for about a minute to make sure we had good hemostasis in these vessels. When we had confirmed good hemostasis, went ahead and completed the case allowing CO2 to escape the abdomen, bring the patient out of her Trendelenburg after of course undocking the robot and then closing the abdominal wounds. At the umbilical we used the fascial Vicryl stitch to close the fascia and then of course for all four wounds we used #3-0 Vicryl in a subcuticular stitch to close the skin. Dry sterile dressings were then applied. Estimated blood loss for the procedure about 150 mL. Fluid replacement was crystalloid. Complications: None. CONDITION AND DISPOSITION: Kera tolerated the procedure well and was recovering in the recovery room in good condition.
[2019-06-14 14:45] VITALS: BP 132/74
[2019-06-14 18:45] VITALS: BP 121/70
[2019-06-14 20:00] VITALS: BP 107/60
[2019-06-14] MEDS: DIVALPROEX 250 MG TAB PO SCH (20:58)
[2019-06-14] MEDS ORDERED: ARIPiprazole 2 MG TAB PO SCH (21:00)
[2019-06-14] MEDS ORDERED: DULoxetine 20 MG CAP (CYMBALTA) PO SCH (21:00)
[2019-06-15 01:00] VITALS: BP 105/56
[2019-06-15] MEDS: LR 1,000 ML IV SCH (04:33)
[2019-06-15 04:39] VITALS: BP 117/72
[2019-06-15] MEDS ORDERED: NORCO, ANEXSIA 5/325MG TABLET (HYDROcodone/ACETAMINOPHEN) PO PRN (06:00)
[2019-06-15 07:04] LABS: HEMATOCRIT 31.9 % (36.0-47.0); MEAN CORPUSCULAR HEMOGLOBIN 30.7 pg (27.0-33.0); MEAN CORPUSCULAR HGB CONC 33.2 g/dl (32.0-36.5); MEAN CORPUSCULAR VOLUME 92.5 fl (80.0-96.0); PLATELET COUNT, AUTOMATED 263 10^3/uL (150-450); RED BLOOD COUNT 3.45 10^6/uL (4.00-5.40); WHITE BLOOD COUNT 8.9 10^3/uL (4.0-10.0)
[2019-06-15 07:16] LABS: HEMOGLOBIN 10.6 g/dl (12.0-15.5)
[2019-06-15] MEDS: DIVALPROEX 250 MG TAB PO SCH (09:00)
[2019-06-15] MEDS ORDERED: IBUP-1022 PO (10:36)
[2019-06-15] MEDS ORDERED: NORC1TAB7 PO (10:39)
== END 2019-06-15 11:40 | disposition home or self-care (01) ==
LOC: M SDC 09:11 → M MS4PR 14:45 → M SDC 06-15 11:40
PROVIDERS: ATTEND Obstetrics & Gynecology
DX: N72 Inflammatory disease of cervix uteri (principal); R10.2 Pelvic and perineal pain; N93.9 Abnormal uterine and vaginal bleeding, unspecified; N39.46 Mixed incontinence; F31.9 Bipolar disorder, unspecified; F41.9 Anxiety disorder, unspecified; F32.9 Major depressive disorder, single episode, unspecified; Z88.2 Allergy status to sulfonamides; Z88.8 Allergy status to other drugs, medicaments and biological substances; Z79.899 Other long term (current) drug therapy; Z87.891 Personal history of nicotine dependence
CPT/HCPCS: 36415; 58571; 80048; 81025; 85027; 86850; 86900; 86901; 88307; J0131; J0690; J1100; J1170; J1885; J2250; J2405; J2765; J3010

== ENCOUNTER → 2019-07-09 | Outpatient (CLI) | payer OTHER ==
[~2019-07-09] MED LIST changes: +IBUP-1022 PO; -LR 1,000 ML IV ONE; +NORC1TAB7 PO; -ceFAZolin SOD 2 GM in IV 1 EA IV ONE
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
== END ==
LOC: M PAIN 09:15
PROVIDERS: ATTEND Nurse Practitioner Family
DX: M79.2 Neuralgia and neuritis, unspecified (principal); R07.89 Other chest pain

== ENCOUNTER → 2019-08-13 | Outpatient (CLI) | payer OTHER ==
--- NOTE | 2019-08-13 13:40 | REP ---
INDICATION: Neuralgia. PROCEDURE: MR lumbar spine with no T1, T2, and STIR images. Axial T1 and T2-weighted images obtained. COMPARISON STUDIES: No prior similar studies FINDINGS: Overall spinal alignment within normal limits. Vertebral heights and disc heights preserved. Conus ends normally at L1 level. Soft tissues appear unremarkable. No significant canal stenosis. On review of axial images, At L1-2 no significant canal or foraminal narrowing. At L2-3 and L3-4 disc bulge with mild canal narrowing and mild bilateral foraminal narrowing. At L4-5 more significant disc bulge with annular tear with [id number] canal narrowing [id number] bilateral foraminal narrowing. At L5 S1 no significant canal or foraminal narrowing. Small hemangioma seen in the L3 vertebral body. On the STIR images, no significant STIR signal abnormality to suggest soft tissue or ligamentous injury. IMPRESSION; 1. No limiting canal or foraminal stenosis. 2. More significant disc degeneration at L4-5 with annular tear. Electronically Signed by Bryce Brink MD 08/13/2019 01:31 P
== END ==
LOC: M RAD 10:21
PROVIDERS: ATTEND Nurse Practitioner Family
DX: M79.2 Neuralgia and neuritis, unspecified (principal); M51.36 Other intervertebral disc degeneration, lumbar region; M51.86 Other intervertebral disc disorders, lumbar region

== ENCOUNTER → 2019-08-21 | Outpatient (CLI) | payer OTHER ==
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
== END ==
LOC: M PAIN 10:15
PROVIDERS: ATTEND Nurse Practitioner Family
DX: M79.2 Neuralgia and neuritis, unspecified (principal); R07.89 Other chest pain

== ENCOUNTER → 2019-08-29 | Outpatient (CLI) | payer OTHER | LOC: M LAB 11:23 | PROVIDERS: ATTEND Internal Medicine Cardiovascular Disease | DX: R06.00 Dyspnea, unspecified (principal) ==

== ENCOUNTER → 2019-09-07 | Outpatient (CLI) | payer OTHER ==
[~2019-09-07] MED LIST changes: +ISOVUE-370 76% 100ML VIAL (Q9967) As Ordered ONE
--- NOTE | 2019-09-07 11:08 | REPVR ---
PROCEDURE INFORMATION: Exam: CT Angiography Chest With Contrast Exam date and time: 09/07/2019 10:22 AM Age: 39 years old Clinical indication: Dyspnea; Additional info: Dyspna w/ chest pain TECHNIQUE: Imaging protocol: Computed tomographic angiography of the chest with intravenous contrast. 3D rendering: MIP and/or 3D reconstructed images were created by the technologist. Radiation optimization: All CT scans at this facility use at least one of these dose optimization techniques: automated exposure control; mA and/or kV adjustment per patient size (includes targeted exams where dose is matched to clinical indication); or iterative reconstruction. Contrast material: Isovue 370; Contrast volume: 75 ml; Contrast route: IV; COMPARISON: CR Chest, 2 view PA, Lat 06/04/2019 12:16 PM FINDINGS: Pulmonary arteries: Normal. No pulmonary emboli. Aorta: No aortic aneurysm. No aortic dissection. Other arteries: Left vertebral artery origin from the aortic arch, normal variant. Replaced right hepatic artery (SMA origin), a normal variant. Thyroid: The partially imaged bilateral thyroid lobes are unremarkable. Lungs: RIGHT upper lobe calcified pulmonary parenchymal granuloma. Pleural space: No pneumothorax. No pleural effusion. Heart: Mild cardiac left ventricular enlargement. Gallbladder and bile ducts: The gallbladder is surgically absent. Lymph nodes: No enlarged lymph nodes. Bones/joints: Unremarkable. No acute fracture. Soft tissues: Unremarkable. IMPRESSION: 1. No pulmonary embolism identified. 2. No thoracic aortic aneurysm or dissection identified. 3. Mild cardiac left ventricular enlargement. 4. Prior cholecystectomy. Electronically signed by: Isiah Norris On 09/07/2019 11:08:35 AM
== END ==
LOC: M RAD 09:43
PROVIDERS: ATTEND Internal Medicine Cardiovascular Disease
DX: R06.00 Dyspnea, unspecified (principal); R07.9 Chest pain, unspecified; Z90.49 Acquired absence of other specified parts of digestive tract; I51.7 Cardiomegaly
CPT/HCPCS: 71275; Q9967